=== PATIENT | female | born 1970 | race Two or more races ===

== ENCOUNTER 2025-01-08 16:09 | Emergency (ER) | payer MEDICAID, OTHER ==
[~2025-01-08] VITALS: Ht 162.6 cm; Wt 68.8 kg
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
[2025-01-08] MEDS: KETOROLAC TROMETH 60MG/2ML VIAL IM ONE (17:10)
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
[2025-01-08] MEDS ORDERED: TRAM50TA2 PO (20:00)
[2025-01-08 20:17] VITALS: BP 140/70; PULSE 64; RESP 18; TEMP 97.8; O2SAT 98
== END 2025-01-08 20:17 | disposition home or self-care (01) ==
LOC: EDBD 16:09 → ER 16:13
DX: S39.012A Strain of muscle, fascia and tendon of lower back, initial encounter (principal); Z79.899 Other long term (current) drug therapy; V89.2XXA Person injured in unspecified motor-vehicle accident, traffic, initial encounter; Y93.89 Activity, other specified; Y92.89 Other specified places as the place of occurrence of the external cause; Y99.8 Other external cause status
CPT/HCPCS: 72100; 96372; 99283; J1885